=== PATIENT | male | born 1960 | race Hispanic/Latino ===

== ENCOUNTER 2020-09-23 10:42 | Day surgery (SDC) | payer OTHER ==
--- NOTE | 2020-09-06 13:48 | RAD REPORT ---
EXAM DESCRIPTION: RAD - Chest Pa And Lat (2 Views) - 09/06/2020 1:41 pm CLINICAL HISTORY: preop, pending cardiac catheterization COMPARISON: None TECHNIQUE: Frontal and lateral views of the chest were obtained. FINDINGS: The lungs are clear. Heart size is normal and central vasculature is within normal limit s. No pleural effusion or pneumothorax seen. No acute bony finding noted. No aortic abnormality. IMPRESSION: No acute cardiopulmonary process.
[2020-09-06 13:59] LABS: Absolute Lymphocytes (CBC) 0.9 K/uL (0.7-4.9); Basophils % 0.5 % (0-1.3); Hematocrit 45.1 % (39.6-49.0); MPV 9.5 fL (7.6-11.3); Potassium 3.9 mmol/L (3.5-5.1); Protime INR 1.1; RBC Red Blood Cell Count 4.93 M/uL (4.33-5.43)
--- NOTE | 2020-09-07 12:55 | EKG ---
Test Date: 2020-09-06 Test Time: 12:16:32 Truck [employer]er: MILLIE MEASUREMENT RESULTS: Intervals: Rate: 75 ND: 222 QRSD: 106 QT: 364 QTc: 406 [place]: P: 71 ND: 222 QRS: 249 T: 79 INTERPRETIVE STATEMENTS: Sinus rhythm with 1st degree AV block Right superior axis deviation Septal infarct, age undetermined Abnormal ECG No previous ECG available for comparison Electronically Signed On 09-07-20 12:52:49 CDT by Fransico Ross
[2020-09-23] MEDS ORDERED: HEPA 1000U/500MLS 2,000 UNIT/1,000 ML BAG IV ONE (11:04)
[2020-09-23] MEDS ORDERED: NA CHLORIDE 0.9% 500 ML ONE (12:00)
[2020-09-23 12:15] LABS: Absolute Lymphocytes (CBC) 1.1 K/uL (0.7-4.9); Basophils % 0.7 % (0-1.3); Hematocrit 47.1 % (39.6-49.0); Lymphocytes % 13.4 % (15.3-44.8); MPV 8.8 fL (7.6-11.3); RBC Red Blood Cell Count 5.17 M/uL (4.33-5.43)
[2020-09-23 12:25] LABS: Protime INR 1.08
[2020-09-23 12:29] LABS: Potassium 3.7 mmol/L (3.5-5.1)
[2020-09-23] MEDS ORDERED: MIDAZOLAM HCL 2 MG/2 ML INJ ONE (13:16)
[2020-09-23] MEDS ORDERED: HEPARIN 5000 UNIT/ML 1 ML VIAL ONE (13:16)
[2020-09-23] MEDS ORDERED: VERAPAMIL HCL 10 MG/4 ML VIAL IV ONE (13:16)
[2020-09-23] MEDS ORDERED: FENTANYL CITR 100 MCG/2 ML ONE (13:16)
[2020-09-23] MEDS ORDERED: HEPARIN 10,000 UNIT/10 ML VIAL IV ONE (13:17)
[2020-09-23] MEDS ORDERED: ATROPINE SULF 1 MG/10 ML SYR IV ONE (13:17)
[2020-09-23] MEDS ORDERED: HEPA 1000U/500MLS 1,000 UNIT/500 ML BAG IV ONE (14:15)
[2020-09-23] MEDS ORDERED: REGADENOSON 0.4 MG/5 ML SYR IV ONE ×2 (14:17→14:24)
[2020-09-23] MEDS ORDERED: ONDANSETRON 4 MG/2 ML VIAL ONE (14:25)
[2020-09-23 16:54] VITALS: TEMP 97
--- NOTE | 2020-09-23 17:05 | OP ---
Date of Procedure: 09/23/2020 Surgeon: GALLO BLEVINS Procedures Performed: 1.Selective coronary angiogram. 2.FFR of mid LAD, moderate disease, negative value of 0.82. 3.FFR of mid OM1 moderate disease, negative value of 0.93. Access: Right radial artery 6-Armenian closed with TR band. Indication: Chest pain with abnormal stress test. Description Of Procedure: After risks, benefits, and alternatives were explained, the patient agreed to the procedure and signed informed consent. Then, we accessed the right radial artery using pedia tric micropuncture kit, placed a 6-Armenian slender sheath and then we took a 5-Armenian [place] catheter 4 .0 into the aortic root, engaged left main and right coronary artery, took standard views. Then, we moved to the interventional part. Intervention Details: We gave systemic heparin to assure ACT level above 250 throughout the procedur e. Then, we took a 6-Armenian EBU 3.5 guide into the aortic root, engaged left main and took the Comme nt off a wire into the aortic root and equalized pressures. Then, the wire was placed in the LAD dis andre to the mid LAD stenosis. An FFR was done and value was 0.82 indicative of insignificant disease. Then, we took the wire out of the LAD and placed it in the OM1 branch FFR was 0.93. The n, we took the wire out and did final angiogram. There were no complications. Then, the catheter wa s removed. Sheath was removed, placed TR band with good hemostasis. Findings: 1.Left main is short and normal. 2.LAD is a proximal 30%, patent stent in the proximal portion, then mid 50% stenosis after the stent with negative FFR of 0.82, then patent mid LAD stent. 3.Left circumflex; large with patent OM2 stent and OM1 has a 50% stenosis with negative FFR of 0.93. 4.RCA; large, dominant with mid PDA 40% to 50% stenosis that is diffuse. Conclusion: Moderate nonobstructive coronary artery disease with negative FFR of mid LAD and mid OM1 stenosis. Recommendation: Medical management. SR/MODL Voice ID: [id number] Report ID: [id number]
[2020-09-23 18:16] VITALS: BP 143/76; O2SAT 98
== END 2020-09-23 18:50 | disposition home or self-care (01) ==
LOC: CCL 10:42
PROVIDERS: ATTEND Internal Medicine
DX: I25.118 Atherosclerotic heart disease of native coronary artery with other forms of angina pectoris (principal); I10 Essential (primary) hypertension; E78.5 Hyperlipidemia, unspecified; Z95.5 Presence of coronary angioplasty implant and graft; Z20.822 Contact with and (suspected) exposure to COVID-19
CPT/HCPCS: 93005 ×2; 85025 ×2; 80048 ×2; 36415 ×2; 85610 ×2; 85347; 85730 ×2; 71046; 93454; 93571; U0002; U0003; C1893; J1644 ×3; J2250; J3010; J2785 ×2; J7040; 93572; J2405